=== PATIENT | male | born 1970 | race Caucasian/White ===

== ENCOUNTER 2019-12-02 22:18 | Emergency (ER) | payer MEDICAID ==
[~2019-12-02] VITALS: Ht 180.3 cm; Wt 87.7 kg
[2019-12-02 23:45] LABS: BASOPHILS # (AUTO) 0.1 X10'3 (0-0.2); BASOPHILS % (AUTO) 0.8 % (0-1); EOSINOPHILS # (AUTO) 0.3 X10'3 (0-0.9); EOSINOPHILS % (AUTO) 3.9 % (0-6); HEMATOCRIT 46.4 % (42.0-52.0); HEMOGLOBIN 15.8 g/dl (14.0-17.9); LYMPHOCYTES # (AUTO) 2.5 X10'3 (1.1-4.8); LYMPHOCYTES % (AUTO) 29.7 % (21-51); MEAN CORPUSCULAR HEMOGLOBIN 31.3 PG (27.0-31.0); MEAN CORPUSCULAR HGB CONC 34.2 g/dL (33.0-36.5); MEAN CORPUSCULAR VOLUME 91.7 FL (78-98); MEAN PLATELET VOLUME 7.9 FL (7.4-10.4); MONOCYTES # (AUTO) 0.6 X10'3 (0-0.9); MONOCYTES % (AUTO) 6.8 % (2-12); NEUTROPHILS % (AUTO) 58.8 % (42-75); PLATELET COUNT 221 X10'3 (140-440); RED BLOOD COUNT 5.06 X10'6 (4.70-6.10); RED CELL DISTRIBUTION WIDTH 13.4 % (11.5-14.5); WHITE BLOOD COUNT 8.5 X10'3 (4.5-11.0)
--- NOTE | 2019-12-02 23:45 | NUR ---
to restroom for void
[2019-12-02 23:56] LABS: ALANINE AMINOTRANSFERASE 22 U/L (12-78); ALBUMIN 3.7 G/DL (3.4-5.0); ALKALINE PHOSPHATASE 79 IU/L (46-116); ANION GAP 9 (8-16); ASPARTATE AMINO TRANSFERASE 17 U/L (10-37); BILIRUBIN,TOTAL 0.2 MG/DL (0.1-1.0); BLOOD UREA NITROGEN 14 MG/DL (7-18); BUN/CREATININE RATIO 12.3 (5.4-32.0); CALCIUM 8.7 MG/DL (8.5-10.1); CHLORIDE 104 MMOL/L (99-107); CREATININE 1.14 MG/DL (0.60-1.10); GLUCOSE 85 MG/DL (70-104); LIPASE 1166 U/L (73-393); POTASSIUM 3.7 MMOL/L (3.5-5.1); SODIUM 144 MMOL/L (135-145); TOTAL CARBON DIOXIDE 30.9 MMOL/L (24-32); TOTAL PROTEIN 7.4 G/DL (6.4-8.2); eGFR 69 ML/MIN
[2019-12-03 00:06] LABS: CLARITY,URINE CLEAR (Clear); COLOR,URINE YELLOW (Yellow); GLUCOSE, URINE NEGATIVE (Neg); KETONES,URINE NEGATIVE (Neg); LEUKOCYTE ESTERASE ,URINE NEGATIVE (Neg); NITRITES, URINE NEGATIVE (Neg); OCCULT BLOOD,URINE SMALL (Neg); PROTEIN,URINE NEGATIVE (Neg); UROBILINOGEN,URINE 0.2 E.U/dL (0.2-1.0)
[2019-12-03 00:14] LABS: UA COLLECTION TYPE NON-SPECIFIED
[2019-12-03 00:15] LABS: BACTERIA,URINE NONE SEEN /HPF (Neg); RBC,URINE 0-2 /HPF (0-2); SPERM FEW /HPF (NEGATIVE); SQUAMOUS EPITHELIAL CELL,UR FEW /LPF (FEW); WBC,URINE NONE SEEN /HPF (0-4)
[2019-12-03] MEDS ORDERED: normal saline 1000ML IV soln IVB ONE (00:30)
[2019-12-03 02:08] VITALS: BP 135/95
== END 2019-12-03 02:10 | disposition home or self-care (01) ==
LOC: ER 22:19
DX: K40.20 Bilateral inguinal hernia, without obstruction or gangrene, not specified as recurrent (principal); R74.8 Abnormal levels of other serum enzymes; G89.29 Other chronic pain; M54.5 Low back pain; J45.909 Unspecified asthma, uncomplicated; F32.9 Major depressive disorder, single episode, unspecified; F12.90 Cannabis use, unspecified, uncomplicated; Z90.49 Acquired absence of other specified parts of digestive tract; Z56.0 Unemployment, unspecified
CPT/HCPCS: 36415; 74176; 80053; 81001; 83690; 85025; 99284; J7030; 81003

== ENCOUNTER 2021-01-22 21:02 | Emergency (ER) | payer MEDICAID ==
[~2021-01-22] VITALS: Ht 180.3 cm; Wt 90.9 kg
[~2021-01-22 21:02] MED LIST: LIDOcaine 1% 30ml preserv. free vial ONE
[2021-01-22 21:12] VITALS: BP 150/108
[2021-01-23] MEDS ORDERED: tetanus & diphtheria toxoid (Td) vaccine 0.5ml IMVAC ONE (00:40)
[2021-01-23] MEDS ORDERED: bacitracin 15gm ointment TP ONE (00:55)
[2021-01-23] MEDS ORDERED: TETanus/Pertussis (Acell)/Diphther VAC/PF (Tdap-Adult) 0.5ml syringe IMVAC ONE (00:55)
== END 2021-01-23 01:08 | disposition home or self-care (01) ==
LOC: ER 21:02
DX: S51.812A Laceration without foreign body of left forearm, initial encounter (principal); J45.909 Unspecified asthma, uncomplicated; G89.29 Other chronic pain; F12.90 Cannabis use, unspecified, uncomplicated; Z56.0 Unemployment, unspecified; Z90.49 Acquired absence of other specified parts of digestive tract; W26.8XXA Contact with other sharp object(s), not elsewhere classified, initial encounter; Y93.89 Activity, other specified; Y92.89 Other specified places as the place of occurrence of the external cause; Y99.8 Other external cause status
CPT/HCPCS: 12032; 73090; 90471; 90715; 99284; J2001; 12002; 99283

== ENCOUNTER 2021-04-05 18:23 | Emergency (ER) | payer MEDICAID ==
[~2021-04-05] VITALS: Ht 177.8 cm; Wt 90.9 kg
[2021-04-05] MEDS ORDERED: LIDOcaine 1% W/epiNEPHrine 1:200,000 10ml vial IJ ONE (18:30)
[2021-04-05] MEDS ORDERED: CEPH250T PO (18:49)
[2021-04-05 19:08] VITALS: BP 155/101
--- NOTE | 2021-04-05 19:25 | NUR ---
patient and received discharge instructions, instructions on wound management and rx. patient acknowledged understanding. vs wnl. patient had no further complaints. patient dc home with .
== END 2021-04-05 19:26 | disposition home or self-care (01) ==
LOC: ER 18:24
DX: S81.811A Laceration without foreign body, right lower leg, initial encounter (principal); J45.909 Unspecified asthma, uncomplicated; G89.29 Other chronic pain; F32.9 Major depressive disorder, single episode, unspecified; F12.90 Cannabis use, unspecified, uncomplicated; Z90.49 Acquired absence of other specified parts of digestive tract; Z79.2 Long term (current) use of antibiotics; X58.XXXA Exposure to other specified factors, initial encounter; Y93.89 Activity, other specified; Y92.89 Other specified places as the place of occurrence of the external cause; Y99.8 Other external cause status
CPT/HCPCS: 12002; 99283

== ENCOUNTER 2021-04-30 07:02 | Inpatient (IN) | payer MEDICAID ==
[2021-04-23 15:37] LABS: BASOPHILS # (AUTO) 0.1 X10'3 (0-0.2); BASOPHILS % (AUTO) 0.9 % (0-1); EOSINOPHILS # (AUTO) 0.6 X10'3 (0-0.9); EOSINOPHILS % (AUTO) 8.2 % (0-6); LYMPHOCYTES % (AUTO) 25.7 % (21-51); MEAN CORPUSCULAR HEMOGLOBIN 30.8 PG (27.0-31.0); MEAN CORPUSCULAR VOLUME 90.8 FL (78-98); MONOCYTES # (AUTO) 0.7 X10'3 (0-0.9); MONOCYTES % (AUTO) 8.8 % (2-12); NEUTROPHILS # (AUTO) 4.3 X10'3 (1.8-7.7); NEUTROPHILS % (AUTO) 56.4 % (42-75); PRE OP HEMATOCRIT 44.4 % (42.0-52.0); PRE OP HEMOGLOBIN 15.1 g/dL (14.0-17.9); PRE OP PLATELET COUNT 221 X10'3 (140-440)
[2021-04-23 15:55] LABS: ALBUMIN 3.5 G/DL (3.4-5.0); ALKALINE PHOSPHATASE 91 IU/L (46-116); BLOOD UREA NITROGEN 13 MG/DL (7-18); BUN/CREATININE RATIO 12.4 (5.4-32.0); CALCIUM 8.4 MG/DL (8.5-10.1); CHLORIDE 106 MMOL/L (99-107); CREATININE 1.05 MG/DL (0.60-1.10); PRE OP ALT 17 U/L (30-65); PRE OP ANION GAP 10 (8-16); PRE OP AST 17 U/L (10-37); PRE OP BILIRUB, TOTAL 0.2 MG/DL (0.0-1.0); PRE OP GLUCOSE 88 MG/DL (70-104); PRE OP POTASSIUM 3.9 MMOL/L (3.4-5.1); PRE OP SODIUM 142 MMOL/L (135-145); TOTAL CARBON DIOXIDE 25.7 MMOL/L (24-32); eGFR 75 ML/MIN
[2021-04-30] VITALS (18 sets, daily range): BP systolic 112–134; BP diastolic 69–94
[~2021-04-30] VITALS: Ht 180.3 cm; Wt 83.0 kg
[~2021-04-30 07:02] MED LIST changes: +BUPIVAcaine/PF 2.5mg/ml (0.25%) 10ml vial ONE; +NO HOME MEDS; +albuterol 2.5 MG/3 ML nebule NEB PRN; +cefazolin/dext.iso 2gm/100ml IV ONE; +famotidine 20mg tablet PO ONE; +ringers solution, lacted 1,000 ML IV SCH
[2021-04-30] MEDS ORDERED: ringers solution, lacted 1,000 ML IV SCH (08:55)
[2021-04-30] MEDS ORDERED: ondansetron/PF 4mg/2ml inj IV PRN ×2 (08:55→11:45)
[2021-04-30] MEDS ORDERED: labetalol 20mg/4ml (5mg/ml) syringe IV PRN (08:55)
[2021-04-30] MEDS ORDERED: morphine 4 MG/ML inj SYRINge IV PRN (08:55)
[2021-04-30] MEDS ORDERED: morphine 2 MG/ML inj. syringe IV PRN (08:55)
[2021-04-30] MEDS ORDERED: hydrALAZINE 20mg/ml inj. IV PRN (08:55)
[2021-04-30] MEDS ORDERED: fentaNYL/PF 50MCG/1 ML 2ML syringe IV PRN (08:55)
[2021-04-30] MEDS ORDERED: MIDAZolam 1 MG/ML 5ML VIAL ONE (08:56)
[2021-04-30] MEDS ORDERED: fentaNYL/PF 50MCG/1 ML 2ML syringe ONE (08:56)
[2021-04-30] MEDS ORDERED: ondansetron/PF 4mg/2ml inj ONE (08:57)
[2021-04-30] MEDS ORDERED: LIDOcaine 1%/PF 5ML 10 MG/ML VIAL ONE (08:57)
[2021-04-30] MEDS ORDERED: rocuronium 10mg/ml inj IV ONE ×2 (08:57→10:52)
[2021-04-30] MEDS ORDERED: propofol inj 20 ML IV ONE (08:57)
[2021-04-30] MEDS ORDERED: propofol 10mg/ml 20ml vial IV ONE (08:59)
[2021-04-30] MEDS ORDERED: neostigmine methylsulfate 1 MG/ML 10ml vial ONE (08:59)
[2021-04-30] MEDS ORDERED: sevoflurane 250ml liquid IH ONE (08:59)
[2021-04-30] MEDS ORDERED: dexamethasone sod phosphate 10mg/ml inj ONE (08:59)
[2021-04-30] MEDS ORDERED: labetalol 20mg/4ml (5mg/ml) syringe IV ONE (10:23)
[2021-04-30] MEDS ORDERED: glycopyrrolate 0.2mg/ml inj ONE (10:59)
--- NOTE | 2021-04-30 11:30 | NUR ---
Received from OR via BED IN STABLE CONDITION, accompanied by Anesthesiologist and BRANCH RENTAL MANAGER report given by BRANCH RENTAL MANAGER AND Anesthesiolgist. Addendum: 04/30/21 at 1200 by Mariya Sanon RN Amended: Links added.
[2021-04-30] MEDS ORDERED: CADD PCA waste documentation MC PRN (11:45)
[2021-04-30] MEDS ORDERED: naloxone 0.4 mg/ml inj IV PRN (11:45)
[2021-04-30] MEDS: fentaNYL/PF 50MCG/1 ML 2ML syringe IV PRN ×2 (12:13→12:21)
[2021-04-30] MEDS: HYDROmorph./NS 0.2 mg/ml CADD 100 ML IV SCH ×7 (13:00→23:00)
--- NOTE | 2021-04-30 13:00 | NUR ---
Patient in room [facility]. I have received report from Venita brass instrument repair technician and had the opportunity to ask questions and assume patient care.
--- NOTE | 2021-04-30 13:00 | NUR ---
PATIENT TRANSFERRED FROM PACU TO ROOM 349B IN STABLE CONDITION AFTER REPORT GIVEN. PATIENT TRANSPORTED VIA BED WITH RN AND VOLUNTEER. Addendum: 04/30/21 at 1325 by Mariya Sanon RN Amended: Links added.
[2021-04-30] MEDS: Potassium Cl inj 20 MEQ in ringers solution, lacted 1,000 ML IV SCH ×2 (16:30→19:50)
--- NOTE | 2021-04-30 18:23 | NUR ---
Problems reprioritized. Patient report given, questions answered & plan of care reviewed with HERIBERTO LOUIS RN.
--- NOTE | 2021-04-30 18:30 | NUR ---
Patient in room [facility]. I have received report from LOU VILLANUEVA and had the opportunity to ask questions and assume patient care.
[2021-04-30] MEDS: albuterol 2.5 MG/3 ML nebule NEB SCH (19:00)
[2021-04-30] MEDS: heparin, porcine 5000 units/ml vial SQ SCH (20:33)
[2021-05-01] VITALS: BP 119/68
[2021-05-01] MEDS: HYDROmorph./NS 0.2 mg/ml CADD 100 ML IV SCH ×7 (01:00→13:00)
[2021-05-01] MEDS: Potassium Cl inj 20 MEQ in ringers solution, lacted 1,000 ML IV SCH (01:14)
--- NOTE | 2021-05-01 06:30 | NUR ---
Problems reprioritized. Patient report given, questions answered & plan of care reviewed with LOU VILLANUEVA.
[2021-05-01 06:32] LABS: BASOPHILS % (AUTO) 0.3 % (0-1); EOSINOPHILS # (AUTO) 0.1 X10'3 (0-0.9); EOSINOPHILS % (AUTO) 0.6 % (0-6); HEMOGLOBIN 13.1 g/dl (14.0-17.9); LYMPHOCYTES # (AUTO) 1.9 X10'3 (1.1-4.8); LYMPHOCYTES % (AUTO) 16.1 % (21-51); MEAN CORPUSCULAR HEMOGLOBIN 29.8 PG (27.0-31.0); MEAN CORPUSCULAR HGB CONC 32.9 g/dL (33.0-36.5); MEAN CORPUSCULAR VOLUME 90.6 FL (78-98); MEAN PLATELET VOLUME 8.1 FL (7.4-10.4); MONOCYTES # (AUTO) 0.8 X10'3 (0-0.9); MONOCYTES % (AUTO) 7.1 % (2-12); NEUTROPHILS # (AUTO) 8.7 X10'3 (1.8-7.7); NEUTROPHILS % (AUTO) 75.9 % (42-75); PLATELET COUNT 200 X10'3 (140-440); RED BLOOD COUNT 4.42 X10'6 (4.70-6.10); RED CELL DISTRIBUTION WIDTH 13.8 % (11.5-14.5); WHITE BLOOD COUNT 11.5 X10'3 (4.5-11.0)
[2021-05-01 06:58] LABS: ALBUMIN 2.9 G/DL (3.4-5.0); ANION GAP 7 (8-16); BLOOD UREA NITROGEN 11 MG/DL (7-18); BUN/CREATININE RATIO 11.3 (5.4-32.0); CALCIUM 8.1 MG/DL (8.5-10.1); CHLORIDE 108 MMOL/L (99-107); CREATININE 0.97 MG/DL (0.60-1.10); GLUCOSE 103 MG/DL (70-104); POTASSIUM 4.3 MMOL/L (3.5-5.1); SODIUM 139 MMOL/L (135-145); TOTAL CARBON DIOXIDE 24.3 MMOL/L (24-32); eGFR 83 ML/MIN
[2021-05-01 07:00] VITALS: BP 121/75
[2021-05-01] MEDS: albuterol 2.5 MG/3 ML nebule NEB SCH ×2 (08:36→12:46)
[2021-05-01] MEDS: heparin, porcine 5000 units/ml vial SQ SCH (09:50)
[2021-05-01 11:09] VITALS: BP 121/46
[2021-05-01] MEDS ORDERED: oxyCODONE/APAP 5-325mg tablet PO PRN (12:15)
[2021-05-01] MEDS ORDERED: PER5325T PO (12:58)
[2021-05-01] MEDS ORDERED: ALBUTEROL INHALER 1 PUFF/90 MCG INHALER IH PRN (13:00)
[2021-05-01] MEDS ORDERED: ALBU6.7H9 IH (14:49)
[2021-05-01] MEDS ORDERED: CADD PCA waste documentation MC PRN (14:50)
--- NOTE | 2021-05-01 15:40 | NUR ---
Patient educated on activity, medications, follow-up care with Dr. Ruiz in 2 weeks, and worsening symptoms. IV was removed and canula was intact. Took patient down to ride. Prescriptions sent to [facility] [address].
== END 2021-05-01 15:08 | disposition home or self-care (01) | DRG 120 ==
LOC: PAS 07:02 → SUR 3N 11:45
PROVIDERS: ADMIT Surgery; ATTEND Surgery
PROC: 8E0W4CZ Robotic Assisted Procedure of Trunk Region, Percutaneous Endoscopic Approach (ICD-10-PCS; 2021-04-30)
PROC: 0BUT4JZ Supplement Diaphragm with Synthetic Substitute, Percutaneous Endoscopic Approach (ICD-10-PCS; principal; 2021-04-30 08:59)
DX: Q79.0 Congenital diaphragmatic hernia (principal); J98.2 Interstitial emphysema; F17.210 Nicotine dependence, cigarettes, uncomplicated; Z71.6 Tobacco abuse counseling
CPT/HCPCS: 36415; 71045; 80048; 80053; 82948; 85025; 93005; 94640; 94760; A4618; A6449; C1781; G0378; J1100; J1170; J1644; J2001; J2250; J2270; J2405; J2704; J2710; J3010; J3480; J3490; J7120; U0003; U0005

== ENCOUNTER 2021-12-13 13:54 | Outpatient (CLI) | payer MEDICAID ==
[~2021-12-13 13:54] MED LIST changes: +ALBU6.7H9 IH; -BUPIVAcaine/PF 2.5mg/ml (0.25%) 10ml vial ONE; -LIDOcaine 1% 30ml preserv. free vial ONE; +PER5325T PO; -albuterol 2.5 MG/3 ML nebule NEB PRN; -cefazolin/dext.iso 2gm/100ml IV ONE; -famotidine 20mg tablet PO ONE; -ringers solution, lacted 1,000 ML IV SCH
== END 2021-12-13 23:59 | disposition home or self-care (01) ==
LOC: 64 CT 13:54
PROVIDERS: ATTEND Surgery
DX: K44.9 Diaphragmatic hernia without obstruction or gangrene (principal); J43.2 Centrilobular emphysema; M19.011 Primary osteoarthritis, right shoulder; Z90.49 Acquired absence of other specified parts of digestive tract; K22.89 Other specified disease of esophagus
CPT/HCPCS: 71250